=== PATIENT | female | born 1975 | race Caucasian/White ===

== ENCOUNTER 2017-03-11 15:50 | Emergency (ER) | payer OTHER, MEDICAID ==
--- NOTE | 2017-03-11 16:06 | EDPHY ---
HPI/HX/ROS/PE/MDM Narrative: CHIEF COMPLAINT: Chest pain HISTORY OF PRESENT ILLNESS: The patient is a 41 y/o female complaining of a dull, achy chest pain, onset this morning. The pain is primarily on the right side of her chest, and radiates into her shoulder. Her right arm feels weaker due to the pain. Pain has been constant with no marked exacerbating or relieving factors. She was advised to present to the ED from her physician, Dr. Lazcano. The pain is questionably worse with breathing. The pain is alleviated when rubbing her chest or moving around. Denies taking medication for this pain. Denies history of DVT's, PE's, CAD, GERD, or familial history of cardiac disease. Denies taking control or Aspirin. Denies history of trauma or recent illness. No fever, chills, diaphoresis, shortness of breath, palpitations, vomiting, diarrhea, urinary complaints, headache, lightheadedness. REVIEW OF SYSTEMS: Aside from elements discussed in the HPI, a comprehensive 10-point review of systems was reviewed and is negative. PAST MEDICAL HISTORY: Denies SOCIAL HISTORY: Lives in [place], , nonsmoker VITAL SIGNS: BP: 125/78, others reviewed by me GENERAL: Well-developed, well-nourished, resting comfortably in no respiratory distress. HEENT: Atraumatic. Eyes: No icterus, no injection. Mouth: moist mucous membranes. No erythema or lesions. Neck: supple with no adenopathy. LUNGS: Clear to auscultation bilaterally, no wheezes, rhonchi or rales. CARDIAC: Mild right upper chest wall tenderness to palpation. No pinpoint tenderness. Regular rate and rhythm, no rubs, murmurs or gallops. ABDOMEN: Soft, nontender, nondistended, bowel sounds normal. BACK: No CVA tenderness. EXTREMITIES: No trauma. No edema. Range of motion is normal throughout. NEURO: Alert and oriented, grossly nonfocal. SKIN: Warm and dry, no rash. PSYCHIATRIC: Normal mentation, no agitation. Portions of this note were transcribed by a medical services manager. I personally performed a history, physical exam, medical decision making, and confirmed accuracy of information the transcribed note. ED Course: The patient is a 41 y/o female presenting with a dull, right-sided chest pain that radiates into her right shoulder. On exam she has a mild right upper chest wall tenderness to palpation. No epigastric or RUQ discomfort. Labs, chest x-ray , and EKG ordered. 500mL IV NS, 324mg PO Aspirin, and 15mg IV Toradol administered. 1606: 12-LEAD EKG: Please see the full report in [facility]. My interpretation: Normal sinus rhythm with a rate of 69 1650: Patient's nurse reports that the patient is declining IVF and Toradol. She is also complaining of increased frequency and burning while urinating. UA ordered. Her chest x-ray is normal. 1700: Patient's laboratory results are unremarkable for a cardiac cause of her chest pain. Patients HEART score is less than 3. Her troponin remains negative greater than 6 hours after the onset of pain. I discussed the HEART score with the patient. I discussed her negative workkup. We discussed further evaluation via her PCP. She is comfortable with the plan of discharge and close followup. UA results are normal. Strict return precautions discussed. MDM: After history and physical examination, the differential for chest pain was considered, including but not limited to, myocardial ischemia, acute coronary syndrome, pulmonary embolus, chest wall pain, pleural inflammation and pulmonary infectious causes. - Data Points Imaging Results: CXR: Impression: Clear lungs. No explanation for acute chest pain. Dictated By: Fritz Self MD Imaging: I viewed and interpreted images myself Laboratory Results: Laboratory Results 03/11/17 16:00 03/11/17 16:00 Medications Given: Discontinued Medications Aspirin (Aspirin) 324 mg PO EDNOW ONE Stop: 03/11/17 16:31 Last Admin: 03/11/17 17:02 Dose: Not Given Sodium Chloride (Ns) 500 mls @ 1,000 mls/hr IV EDNOW ONE PRN Reason: Protocol Stop: 03/11/17 16:59 Last Admin: 03/11/17 17:02 Dose: Not Given Ketorolac Tromethamine (Toradol) 15 mg IVP EDNOW ONE Stop: 03/11/17 16:32 Last Admin: 03/11/17 17:02 Dose: Not Given General Time Seen by Provider: 03/11/17 16:05 Initial Vital Signs: Initial Vital Signs Temperature (C) 36.7 C 03/11/17 15:56 Heart Rate 69 03/11/17 15:56 Respiratory Rate 16 03/11/17 15:56 Blood Pressure 125/78 H 03/11/17 15:56 O2 Sat (%) 100 03/11/17 15:56 O2 Delivery Mode Room Air Allergies/Adverse Reactions: No Known Allergies Allergy (Unverified 03/11/17 15:55) Home Medications: Medication Instructions Recorded NK [No Known Home Meds] 03/11/17 Departure - Departure Disposition: Home, Routine, Self-Care Clinical Impression: Chest wall pain Chest pain Qualifiers: Chest pain type: other chest pain Qualified Code(s): R07.89 - Other chest pain ; R07.8 - Other chest pain Condition: Good Instructions: Chest Pain (ED), Chest Wall Pain (ED) Additional Instructions: Follow-up with your primary doctor within 72 hours. Okay to take ibuprofen 600 mg every 6-8 hours as needed for pain. Return to the Emergency Department for fever, chest pain, shortness of breath, increasing pain or other worsening of condition. Follow up with a city manager for further testing, as soon as possible, within one week. As we discussed, it is impossible to fully rule out heart disease as the cause of your chest pain in the emergency department. We would be happy to reevaluate you and observe you in the hospital at any time. Referrals: GAIL LAZCANO [Primary Care Provider] - As per Instructions Dustin Louise MD [Medical Doctor] - As per Instructions Report Scribed for: Pao Baldwin Report Scribed by: Velma Boyd Date of Report: 03/11/17 Time of Report: 16:06
--- NOTE | 2017-03-11 16:08 | CPEKG ---
Heart Rate: 69 RR Interval: 870 P-R Interval: 124 QRSD Interval: 98 QT Interval: 396 QTC Interval: 425 P [place]: 35 QRS [place]: -8 T Wave [place]: 7 EKG Severity - NORMAL ECG - EKG Impression: SINUS RHYTHM Electronically Signed By: Pao Baldwin 11-Mar-2017 22:41:31
[2017-03-11] MEDS ORDERED: NS 500 ML IV ONE (16:30)
[2017-03-11 16:37] LABS: PLATELET COUNT 226 10^3/uL (150-400)
[2017-03-11] MEDS: KETOROLAC 30 MG/1 ML SDV IVP ONE ×2 (16:43→17:02)
[2017-03-11] MEDS: ASPIRIN 81 MG CHEWABLE TAB PO ONE ×2 (16:43→17:02)
[2017-03-11 17:58] VITALS: BP 111/71; PULSE 62; RESP 18; TEMP 97.9; O2SAT 98
== END 2017-03-11 17:58 | disposition home or self-care (01) ==
DX: R07.89 Other chest pain (principal)
CPT/HCPCS: J1885

== ENCOUNTER 2017-06-27 19:15 | Emergency (ER) | payer OTHER, MEDICAID ==
[2017-06-27 19:27] VITALS: BP 127/84
--- NOTE | 2017-06-27 19:57 | EDPHY ---
H & P Time Seen by Provider: 06/27/17 19:35 HPI/ROS: CHIEF COMPLAINT: left breast pain HISTORY OF PRESENT ILLNESS: The patient is a 42-year-old female who presents emergency department with left breast pain. The patient was diagnosed with pityriasis rosacea. She has been using a cream. Her rash was severe but is now improving. It is worse on the left when compared to the right. She also has significant rash over her left breast. She has not palpate any mass but her symptoms feel like she has"mastitis." She had mastitis 10 years ago. She is not currently . She has had no fevers or chills. No discharge from her nipple. REVIEW OF SYSTEMS: My complete review of systems is negative except as mentioned in the HPI. Past Medical/Surgical History: Includes Pityriasis rosacea Smoking Status: Never smoked Physical Exam: Vitals noted GENERAL: Well-appearing, in no acute distress, alert. HEENT: Eyes normal to inspection, normal pharynx, no signs of dehydration. NECK: No thyromegaly, no lymphadenopathy, supple. RESPIRATORY: Clear to auscultation bilaterally, no rales, rhonchi or wheezing. Chest: The left breast is normal size. There is no asymmetry. No discharge from the nipple. No palpable mass. No obvious signs of skin warmth or erythema. However, there is some limitation to visualization of the skin because of the underlying rash. CVS: Regular rate and rhythm, no rubs, murmurs, or gallops. ABDOMEN: Soft, nontender, nondistended, no organomegaly. BACK: Normal to inspection, no CVA tenderness. SKIN: Diffuse pityriasis type rash. This is plaque-like lesions. It is greater on the left back and left chest when compared to the right. The rash is dry and not weeping. There are no pustules. No pallor. EXTREMITIES: No pedal edema, no calf tenderness, no Homans sign or cords, no joint swelling. NEURO/PSYCH: Alert and oriented x3, normal mood and affect, normal motor sensory exam. No obvious cranial nerve deficit. Constitutional: Initial Vital Signs Temperature (C) 36.8 C 06/27/17 19:24 Heart Rate 75 06/27/17 19:24 Respiratory Rate 18 06/27/17 19:24 Blood Pressure 127/84 H 06/27/17 19:24 O2 Sat (%) 100 06/27/17 19:24 O2 Delivery Mode Room Air Allergies/Adverse Reactions: No Known Allergies Allergy (Unverified 06/27/17 19:27) Home Medications: Medication Instructions Recorded Cephalexin [Keflex (*)] 500 mg PO QID 7 Days cap 06/27/17 Triamcinolone 0.1% [Triamcinolone 1 elsy TP TID 06/27/17 0.1% Cream] Medical Decision Making ED Course/Re-evaluation: I discussed possible etiologies with the patient. I answered all her questions. I see no signs of mass or abscess on exam. I do not feel she needs an ultrasound at this time. Patient has an underlying pityriasis rash. However , I cannot determine if there is also a cellulitis. This is not obvious. I will treat the patient with Keflex to cover for possible super infection based secondary to skin breakdown. I also discussed the need for close follow-up with the patient's primary care physician. I discussed the differential diagnosis including malignancy. Patient was given warnings prior to leaving. She will return with worsening symptoms. Differential Diagnosis: My differential includes but is not limited to cellulitis, abscess, mass, malignancy, zoster, pityriasis Departure - Departure Disposition: Home, Routine, Self-Care Clinical Impression: Rash, Breast pain, left Condition: Good Instructions: Cellulitis (ED) Additional Instructions: You need close follow-up with your primary care physician. You have been given an antibiotic to cover for possible underlying cellulitis in your left breast. I do not feel an abscess. However, if your symptoms worsen you need to return for recheck. It is possible that the pain could be related to you're underlying rash. Take your entire course of antibiotics. Referrals: GAIL GOMEZ [Primary Care Provider] - 3-4 days, if not improved Prescriptions: Cephalexin [Keflex (*)] 500 mg PO QID 7 Days cap
[2017-06-27] MEDS ORDERED: CEPHALEXIN 500MG PREPACK#4 BTL TAKEHOME ONE (20:03)
== END 2017-06-27 20:27 | disposition home or self-care (01) ==
DX: N64.4 Mastodynia (principal); R21 Rash and other nonspecific skin eruption

== ENCOUNTER 2017-06-29 05:16 | Emergency (ER) | payer OTHER, MEDICAID ==
[2017-06-29 05:21] VITALS: BP 115/77
[2017-06-29] MEDS ORDERED: SULFAMETHOX/TMP 800/160 MG 1 TAB PO ONE (05:47)
--- NOTE | 2017-06-29 05:49 | EDPHY ---
H & P Stated Complaint: cellulitis of the left breast on abx not getting better Time Seen by Provider: 06/29/17 05:23 HPI/ROS: Chief Complaint: Rash on chest HPI: 42-year-old woman who is diagnosed with pityriasis rosea by her primary care physician several days ago. Patient has been having worsening redness and swelling. She has seen emergency department 2 days ago with concern for possible cellulitis. She was started on Keflex for this. Patient states that the rash around her left breast has been getting worse and is he more uncomfortable. No fevers or chills. Does not seem to be spreading. She has been taking her Keflex as prescribed. No nipple discharge. No masses. ROS: 10 point Review of Systems is negative except as noted in the HPI. PMH: Eczema Social History: No smoking, no alcohol, no recreational drug use Family History: non-contributory Physical Exam: Gen: Awake, Alert, No Distress HEENT: Nose: no rhinorrhea Eyes: PERRLA, EOMI Mouth: Moist mucosa Neck: Supple, no JVD Chest: nontender, lungs clear to auscultation Breast exam with nurse finished metal repairer: Patient has multiple small erythematous spots with scaling consistent with pityriasis. There is scant underlying erythema which is not confluent. There are no palpable masses. Ext: no edema, non-tender Skin: no rash Neuro: CN II-XII intact, Sensation grossly intact, Strength 5/5 in bilateral upper and lower extremities - Personal History LMP (Females 10-55): 1-7 Days Ago Current Tetanus/Diphtheria Vaccine: Yes Current Tetanus Diphtheria and Acellular Pertussis (TDAP): Yes - Medical/Surgical History Hx Asthma: No Hx Chronic Respiratory Disease: No Hx Diabetes: No Hx Cardiac Disease: No Hx Renal Disease: No Hx Cirrhosis: No Hx Alcoholism: No Hx HIV/AIDS: No Hx Splenectomy or Spleen Trauma: No Other PMH: DENIES - Social History Smoking Status: Never smoked Constitutional: Initial Vital Signs Temperature (C) 36.7 C 06/29/17 05:18 Heart Rate 74 06/29/17 05:18 Respiratory Rate 16 06/29/17 05:18 Blood Pressure 115/77 06/29/17 05:18 O2 Sat (%) 99 06/29/17 05:18 O2 Delivery Mode Room Air Allergies/Adverse Reactions: No Known Allergies Allergy (Verified 06/29/17 05:21) Home Medications: Medication Instructions Recorded Cephalexin [Keflex (*)] 500 mg PO QID 7 Days cap 06/27/17 Triamcinolone 0.1% [Triamcinolone 1 elsy TP TID 06/27/17 0.1% Cream] Sulfamethox/Tmp 800/160 mg 1 tab PO BID #20 tab 06/29/17 [Bactrim Ds] Medical Decision Making ED Course/Re-evaluation: 42-year-old presenting with worsening rash in left chest. She certainly has rash consistent with pityriasis. It is possible she has an underlying cellulitis however this is a bit difficult to determine at this time. It is mildly warm to the touch. The erythema is not confluent in his only patchy under the rash lesions which makes he less suspicious of a cellulitic process. I do not appreciate an abscess. Patient states she is only mildly more uncomfortable and not had a significant worsening of the rash. I have given her the option of a dose of IV vancomycin although I do not think this is warranted at this time. She would prefer to continue with oral antibiotics. I have added on Bactrim. I have given her follow-up at [facility] for further evaluation care. She will return emergency depart for any concerns. - Data Points Medications Given: Discontinued Medications Trimethoprim/Sulfamethoxazole (Bactrim Ds) 1 ea PO EDNOW ONE PRN Reason: Protocol Stop: 06/29/17 05:48 Last Admin: 06/29/17 06:03 Dose: 1 ea Departure - Departure Disposition: Home, Routine, Self-Care Clinical Impression: Cellulitis Condition: Good Instructions: Cellulitis (ED) Additional Instructions: Please continue taking the Keflex and add on the Bactrim for your full course of both antibiotics. Follow up at [facility] (infectious disease), and with primary care physician in the next 1-2 days. Return to the emergency department for worsening rash, pain, redness, swelling, fevers, chills, or any other concerns. Referrals: GAIL GOMEZ [Primary Care Provider] - As per Instructions Prescriptions: Sulfamethox/Tmp 800/160 mg [Bactrim Ds] 1 tab PO BID #20 tab
== END 2017-06-29 06:10 | disposition home or self-care (01) ==
DX: N61.0 Mastitis without abscess (principal)

== ENCOUNTER → 2017-09-02 | Outpatient (CLI) | payer OTHER, MEDICAID | LOC: FIMAGING 10:03 | DX: N64.4 Mastodynia (principal); N64.89 Other specified disorders of breast ==